=== PATIENT | female | born 1985 | race African-American/Black ===

== ENCOUNTER 2024-06-18 08:43 | Emergency (ER) | payer OTHER ==
[~2024-06-18] VITALS: Ht 162.6 cm; Wt 84.0 kg
[2024-06-18 08:52] VITALS: O2SAT 99
[2024-06-18] MEDS: ONDANSETRON 4MG ODT PO ONE (10:14)
[2024-06-18] MEDS: ACETAMINOPHEN 325MG TABLET PO ONE (10:14)
[2024-06-18] MEDS ORDERED: GUAI237L83 MT (10:53)
[2024-06-18] MEDS ORDERED: IBUP-2028 MT (10:53)
[2024-06-18] MEDS ORDERED: TOPUD PO (10:53)
[2024-06-18 11:19] VITALS: BP 136/77; PULSE 79; RESP 18; TEMP 37; O2SAT 99
== END 2024-06-18 11:22 | disposition home or self-care (01) ==
LOC: ER 08:43
DX: J11.1 Influenza due to unidentified influenza virus with other respiratory manifestations (principal); Z88.6 Allergy status to analgesic agent; Z20.822 Contact with and (suspected) exposure to COVID-19
CPT/HCPCS: 99283; 87426; 87804 ×2; Q0162

== ENCOUNTER 2024-11-21 16:28 | Emergency (ER) | payer OTHER ==
[~2024-11-21] VITALS: Ht 172.7 cm; Wt 103.2 kg
[~2024-11-21 16:28] MED LIST: GUAI237L83 MT; IBUP-2028 MT; TOPUD PO
[2024-11-21 16:34] VITALS: O2SAT 99
[2024-11-21 17:50] LABS: BASOPHILS % 0.4 % (0.0-2.0); EOSINOPHILS % 0.0 % (0.0-5.0); HEMATOCRIT. 36.3 % (36.0-48.0); HEMOGLOBIN. 11.8 g/dL (12.0-16.0); LYMPHOCYTES % 11.6 % (20.0-50.0); MEAN PLATELET VOLUME 7.9 fl (7.4-10.4); MONOCYTES % 3.3 % (2.0-8.0); NEUTROPHILS % 84.7 % (40.0-76.0); PLATELET 232 x1000/uL (130-400); RED BLOOD CELL COUNT 3.86 mill/uL (4.2-5.4); RED CELL DISTRIBUTION WIDTH 14.2 % (11.6-14.6)
[2024-11-21 17:51] LABS: CLARITY URINE CLEAR (CLEAR); COLOR URINE YELLOW (YELLOW); GLUCOSE URINE 1+ (NEGATIVE); KETONES URINE 2+ (NEGATIVE); LEUKOCYTE ESTERASE URINE NEGATIVE (NEGATIVE); NITRITE URINE NEGATIVE (NEGATIVE); OCCULT BLOOD URINE NEGATIVE (NEGATIVE); PH URINE 6.0 (4.5-8.0); PROTEIN URINE TRACE (NEGATIVE); SPECIFIC GRAVITY URINE 1.062 (1.005-1.030); UROBILINOGEN URINE 0.2 E.U./dL (0.2-1.0)
[2024-11-21 17:58] LABS: INR 1.0
[2024-11-21] MEDS: IOHEXOL-350 100 ML BOTTLE ONE (17:59)
[2024-11-21 18:02] LABS: CREATININE 0.9 mg/dL (0.6-1.0)
[2024-11-21 18:03] LABS: ETHANOL BLOOD < 10 mg/dL (<10); UREA NITROGEN BLOOD 14 mg/dL (9-23)
[2024-11-21 18:04] LABS: TROPONIN I HIGH SENSITIVITY < 4 ng/L (3.0-34)
[2024-11-21 18:06] LABS: *AMPHETAMINES SCREEN URINE NEGATIVE (NEGATIVE); *BENZODIAZEPINES SCREEN URINE NEGATIVE (NEGATIVE)
[2024-11-21] MEDS ORDERED: *TENECTEPLASE FOR AIS XX SCH (18:06)
[2024-11-21] MEDS: TENECTEPLASE 50MG/VIAL IV ONE (18:06)
[2024-11-21 18:07] LABS: *BARBITURATES SCREEN URINE NEGATIVE (NEGATIVE); *COCAINE SCREEN URINE NEGATIVE (NEGATIVE); CANNABINOID URINE SCREEN PRESUMPTIVE POSITIVE (NEGATIVE); ECSTASY MDMA SCREEN URINE NEGATIVE (NEGATIVE); METHADONE URINE SCREEN NEGATIVE (NEGATIVE); OPIATES URINE SCREEN NEGATIVE (NEGATIVE); PHENCYCLIDINE URINE SCREEN NEGATIVE (NEGATIVE)
[2024-11-21 18:22] LABS: BACTERIA URINE 1+; RBC URINE 0-2 /hpf (0-2); SQUAMOUS EPITHELIAL CELL URINE RARE /lpf (RARE/1+); WBC URINE 0-2 /hpf (0-2)
[2024-11-21 19:51] VITALS: BP 135/51; PULSE 67; RESP 22; TEMP 35.6; O2SAT 99
[2024-11-21] MEDS ORDERED: LABETALOL 5MG/ML 4ML INJ IV ONE (20:00)
[2024-11-21] MEDS ORDERED: IOHEXOL-350 100 ML BOTTLE ONE (22:54)
== END 2024-11-21 20:05 | disposition short-term general hospital (02) ==
LOC: ER 16:28 → CANBEDREQ 18:33 → ER 20:05
DX: I63.9 Cerebral infarction, unspecified (principal); I49.8 Other specified cardiac arrhythmias; R29.810 Facial weakness; Z88.6 Allergy status to analgesic agent; Z79.899 Other long term (current) drug therapy
CPT/HCPCS: 80305; 80048; 81003; 80320; 82962; 85025; 85610; 84484; 36415; 71045; 70496; 70498; 70450; 93005; 96374; 99285; Q9967; J3490; J3101; Z7610 ×5; A4606; G0480